=== PATIENT | female | born 1965 | race Caucasian/White ===

== ENCOUNTER 2016-12-15 07:17 | Emergency (ER) | payer OTHER ==
[~2016-12-15] VITALS: Ht 162.6 cm; Wt 131.5 kg
[~2016-12-15 07:17] MED LIST: ACHD5005 PO; CIPR500T4 PO; DICL50TA4 PO; HYDR-229 PO; HYDR-34 PO; HYDR-3816 PO; HYDR118S10 PO; IBP600T1 PO; OMEP-10 PO; [UNRECOGNIZED DRUG - OTHER]
--- OUTSIDE RECORDS SUMMARY | 2016-12-15 07:23 | XMS REPORT | Continuity of Care Document ---
Author Author [facility] Organization [facility] Address Unknown Phone Unavailable Allergies Active Description Code Type Severity Reaction Onset Reported/Identified Relationship to Patient Clinical Status Yes Penicillins [id number] Drug Allergy Unknown N/A 08/28/2015 Medications Problems Date Dx Coded Attending Type Code Diagnosis Diagnosed By 10/22/2009 Ot 530.19 10/22/2009 Ot 530.3 04/04/2012 Ot 218.9 04/04/2012 Ot 599.0 04/04/2012 Ot 620.2 04/04/2012 Ot 789.03 01/01/2013 Ot 620.2 03/01/2013 STEVEN MARCH DO Ot 218.0 03/01/2013 STEVEN MARCH DO Ot 278.01 03/01/2013 STEVEN MARCH DO Ot 620.2 03/01/2013 STEVEN MARCH DO Ot V85.43 09/14/2014 RUDOLPH MENDOSA Ot V76.12 08/28/2015 MIKAL GUZMAN, DAVID Gotti Ot D25.9 08/28/2015 MIKAL GUZMAN, DAVID Gotti Ot K57.90 08/28/2015 MIKAL GUZMAN, DAVID Gotti Ot N39.0 08/28/2015 MIKAL GUZMAN, DAVID Gotti Ot N83.20 08/28/2015 Ot V76.12 08/28/2015 Ot 218.9 08/28/2015 Ot 620.2 08/28/2015 Ot 625.9 08/28/2015 Ot 620.2 08/28/2015 STEVEN MARCH DO Ot 620.2 08/28/2015 STEVEN MARCH DO Ot V72.63 08/28/2015 STEVEN MARCH DO Ot V72.81 08/28/2015 STEVEN MARCH DO Ot V74.8 08/28/2015 MARIN GARCIA DO Ot 218.9 08/28/2015 MARIN GARCIA DO Ot 620.2 08/28/2015 RUDOLPH MENDOSA Ot V76.12 09/14/2015 Ot V76.12 09/14/2015 Ot 218.9 09/14/2015 Ot 620.2 09/14/2015 Ot 625.9 09/14/2015 Ot 620.2 09/14/2015 ANCA ROACH STEVEN Mac Ot 620.2 09/14/2015 ANCA ROACH STEVEN Mac Ot V72.63 09/14/2015 MARCH STEVEN Ot V72.81 09/14/2015 MARCH STEVEN Ot V74.8 09/14/2015 SULYMYRTLE MARIN Ot 218.9 09/14/2015 MARIN GARCIA DO Ot 620.2 09/14/2015 RUDOLPH MENDOSA Ot V76.12 Procedures Results Encounters ACCT No. Visit Date/Time Discharge Status Pt. Type Provider Facility Loc./Unit Complaint [id number] 08/28/2015 09:34:00 2014 14:46:00 DIS Emergency DAVID REN MD [facility] ER [id number] 10/02/2014 10:00:00 2013 23:59:59 CLS Preadmit RUDOLPH MENDOSA [facility] RAD [id number] 08/30/2014 11:39:00 2013 23:59:59 CLS Outpatient RUDOLPH MENDOSA [facility] RAD [id number] 07/10/2014 10:02:00 2013 23:59:59 CLS Outpatient MARIN GARCIA DO [facility] RAD [id number] 03/01/2013 10:27:00 2012 17:15:00 DIS Outpatient STEVEN MARCH DO [facility] [id number] 02/23/2013 08:59:00 2012 23:59:59 CLS Outpatient STEVEN MARCH DO [facility] PREOP [id number] 01/26/2013 11:46:00 Document Registration [id number] 12/31/2012 23:28:00 Document Registration [id number] 12/29/2012 10:20:00 Document Registration [id number] 04/26/2012 10:47:00 Document Registration [id number] 04/04/2012 13:33:00 Document Registration [id number] 10/22/2009 08:27:00 Document Registration
[2016-12-15] MEDS ORDERED: NS IV 1000 ML 1,000 ML IV ONE (07:33)
[2016-12-15] MEDS ORDERED: KETOROLAC 30 MG/ML VIAL IVP STA (07:33)
[2016-12-15] MEDS ORDERED: [UNRECOGNIZED DRUG - OTHER] PO (07:37)
[2016-12-15] MEDS ORDERED: CATAFLAM PO (07:37)
[2016-12-15 07:38] LABS: BILIRUBIN,URINE NEGATIVE (NEGATIVE); KETONES,URINE NEGATIVE (NEGATIVE); LEUKOCYTE ESTERASE ,URINE 3+ (NEGATIVE); NITRITE,URINE NEGATIVE (NEGATIVE); PH,URINE 7 (5-9); PROTEIN,URINE 3+ (NEGATIVE); UROBILINOGEN,URINE NORMAL (NORMAL)
--- NOTE | 2016-12-15 07:44 | ED GU-Female ---
General Chief Complaint: -Female Stated Complaint: UTI SYMPTOMS Nursing Triage Note: PT CO OF UTI SX STARTED AT 0400 THIS AM, PT STATES HAD LOTS OF PAIN IN LOWER ABD Nursing Sepsis Screen: No Definite Risk Source: patient History of Present Illness Time seen by provider: 07:20 Initial Comments PT STATES SHE WOKE UP AT 0400 WITH SIGNIFICANT LOWER ABDOMINAL PAIN AND BLADDER SPASMS--PAIN WOKE HER UP C/O MUCH PAIN IN BLADDER AT END OF URINATION NOW WITH BLOOD IN URINE AND LOWER BACK PAIN ( DID NOT HAVE INITIALLY ) NO FEVER NO NAUSEA NO HISTORY OF SIMILAR PCP: DR. NAVARRO Allergies and Home Medications Allergies Coded Allergies: Penicillins (Verified Allergy, Unknown, 08/28/15) Home Medications 1 TAB PO DAILY (Reported) 1 TAB PO DAILY (Reported) Hydrocodone/Acetaminophen 1 Each Tablet #20 1 EACH PO Q4H Prescribed by: JESIKA ANGELA on 12/15/16843 Levofloxacin 500 Mg Tablet #10 500 MG PO DAILY Prescribed by: JESIKA ANGELA on 12/15/16843 Phenazopyridine HCl 200 Mg Tablet #15 1 TAB PO TID Prescribed by: JESIKA ANGELA on 12/15/16843 Constitutional: no symptoms reported Respiratory: no symptoms reported Cardiovascular: no symptoms reported Gastrointestinal: see HPI abdominal painNo diarrhea, No nausea, No vomiting Genitourinary: see HPI dysuria flank pain hematuria pain : No LMP: Oct 26, 2016 (FIRST PERIOD SHE HAS HAD IN A YEAR--LAST PERIOD WAS OCTOBER 2015. MENOPAUSAL/MARY-MENOPAUSAL) Musculoskeletal: see HPI back pain Skin: no symptoms reported Psychiatric/Neurological: No Symptoms Reported Endocrine: No Symptoms Reported Hematologic/Lymphatic: No Symptoms Reported Past Wslmted-Bjsqig-Uzvsok Hx Patient Social History Alcohol Use: Denies Use Recreational Drug Use: No Smoking Status: Never a Smoker Recent Foreign Travel: No Contact w/Someone Who Travel: No Recent Infectious Disease Expo: No Recent Hopitalizations: No Immunizations Up To Date Tetanus Booster (TDap): Unknown Seasonal Allergies Seasonal Allergies: No Surgeries HX Surgeries: Yes (RIGHT OVARY/TUBE REMOVED FOR CYSTS) Surgeries: Adenoidectomy, Section, Ear Surgery, Gallbladder, Oophorectomy, Orthopedic, Tonsillectomy Respiratory Hx Respiratory Disorders: No Cardiovascular Hx Cardiac Disorders: No Neurological Hx Neurological Disorders: No Reproductive System Hx Reproductive Disorders: Yes (OVARIAN CYST/5 MISCARRIAGES) Sexually Transmitted Disease: No HIV/AIDS: No Female Reproductive Disorders: Ovarian Cyst, Polycystic Ovarian Dis 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 Genitourinary Hx Genitourinary Disorders: No Gastrointestinal Hx Gastrointestinal Disorders: Yes Gastrointestinal Disorders: Gastroesophageal Reflux, Hiatal Hernia Musculoskeletal Hx Musculoskeletal Disorders: Yes (HEEL SPURS) Endocrine Hx Endocrine Disorders: No HEENT HX ENT Disorders: No Cancer Hx Cancer: No Psychosocial Hx Psychiatric Problems: No Integumentary HX Skin/Integumentary Disorder: No Blood Transfusions Hx Blood Disorders: No Adverse Reaction to a Blood Tr: No Physical Exam Vital Signs Vital Sign - Last 12Hours 12/15/16 07:20 Temp 97.4 Pulse 110 Resp 18 B/P 172/100 Pulse Ox 99 Capillary Refill : Less Than 3 Seconds General Appearance: obese other (TEARFUL) Neck: normal inspection Cardiovascular: regular rate, rhythm no murmur Respiratory: normal breath sounds no respiratory distress no accessory muscle use Gastrointestinal: normal bowel sounds soft tenderness (LOWER ABDOMEN AND BILATERAL FLANK TENDERNESS) Back: CVA tenderness (R) CVA tenderness (L) other (DIFFUSE LOWER BACK TENDERNESS) Extremities: normal inspection no pedal edema no calf tenderness normal capillary refill Neurologic/Psychiatric: cam specialist II-XII nml as tested no motor/sensory deficits alert oriented x 3 Skin: normal color warm/dry Progress/Results/Core Measures Results/Orders Lab Results My Orders Medications Given in ED Vital Signs/I&O Blood Pressure Mean: 124 Progress Note : Progress Note PAIN IMPROVED AT DISMISSAL Diagnostic Imaging Comments ACUTE ABDOMEN XRAYS--NO ACUTE PROCESS CT ABDOMEN/PELVIS--NO ACUTE PROCESS, LEFT ADNEXAL CYST HAS DECREASED IN SIZE FROM PREVIOUS, DIVERTICULAR DISEASE. NO EVIDENCE OF HYDRONEPHROSIS OR CALCULI PER RADIOLOGIST REPORTS @ 0837 Reviewed: Reviewed by Me Departure Impression Impression: Primary Impression: Urinary tract infection Additional Impressions: Ovarian cyst, left Hemorrhagic cystitis Disposition: 01 HOME, SELF-CARE Condition: Stable Departure-Patient Inst. Referrals: VANESSA NAVARRO MD (PCP/Family) Primary Care Physician Patient Instructions: Blood in the Urine (Hematuria), Adult (DC), Ovarian Cyst (DC), Urinary Tract Infection, Adult (DC) Add. Discharge Instructions: LOTS OF CLEAR LIQUIDS--NO COFFEE, POP OR TEA FOLLOW UP WITH YOUR DR IN 2-3 DAYS FOR FURTHER CARE All discharge instructions reviewed with patient and/or family. Voiced understanding. Scripts Hydrocodone/Acetaminophen (Hydrocodon -Acetaminophen 5-325)1 Each Tablet1 Each PO Q4H #20 TAB Prov:JESIKA ANGELA DO 12/15/16 Phenazopyridine HCl (Pyridium)200 Mg Tablet1 Tab PO TID BLADDER DISCOMFORT #15 TAB Prov:JESIKA ANGELA DO 12/15/16 Levofloxacin (Levaquin)500 Mg [id number] Mg PO DAILY INFECTION #10 TAB Prov:JESIKA ANGELA DO 12/15/16 JESIKA ANGELA DO Dec 15, 2016 07:44 Anion Gap 10 5-14 MMOL/L Aspartate Amino Transf (AST/SGOT) 17 5-34 U/L BUN/Creatinine Ratio 16 Basophils # (Auto) 0.0 0.0-0.1 10^3/uL Basophils (%) (Auto) 0 0-10 % Blood Urea Nitrogen 11 7-18 MG/DL Calcium Level 8.9 8.5-10.1 MG/DL Carbon Dioxide Level 22 21-32 MMOL/L Chloride Level 105 98-107 MMOL/L Creatinine 0.69 0.60-1.30 MG/DL Eosinophils # (Auto) 0.2 0.0-0.3 10^3/uL Eosinophils (%) (Auto) 2 0-10 % Estimat Glomerular Filtration Rate > 60 Glucose Level 108 H 70-105 MG/DL Hematocrit 38 35-52 % Hemoglobin 12.6 11.5-16.0 G/DL Lipase 11 8-78 U/L Lymphocytes # (Auto) 1.7 1.0-4.0 X 10^3 Lymphocytes (%) (Auto) 14 12-44 % Mean Corpuscular Hemoglobin 32 25-34 PG Mean Corpuscular Hemoglobin Concent 34 32-36 G/DL Mean Corpuscular Volume 95 80-99 FL Mean Platelet Volume 9.6 7.4-10.4 FL Monocytes # (Auto) 1.4 H 0.0-1.0 X 10^3 Monocytes (%) (Auto) 12 0-12 % Neutrophils # (Auto) 8.5 H 1.8-7.8 X 10^3 Neutrophils (%) (Auto) 72 42-75 % Platelet Count 321 130-400 10^3/uL Potassium Level 3.8 3.6-5.0 MMOL/L Red Blood Count 3.94 L 4.35-5.85 10^6/uL Red Cell Distribution Width 12.9 10.0-14.5 % Sodium Level 137 135-145 MMOL/L Total Bilirubin 0.4 0.1-1.0 MG/DL Total Protein 7.3 6.4-8.2 G/DL White Blood Count 11.7 H 4.3-11.0 10^3/uL My Orders Orders-JESIKA ANGELA DO Ua Culture If Indicated (12/15/16 07:28) Ct Abd/Pelvis Wo(Kidney Stone) (12/15/16 07:33) Amylase (12/15/16 07:33) Cbc With Automated Diff (12/15/16 07:33) Comprehensive Metabolic Panel (12/15/16 07:33) Lipase (12/15/16 07:33) Acute Abd Series (12/15/16 07:33) Saline Lock/Iv-Start (12/15/16 07:33) Ketorolac Injection (Toradol Injection) (12/15/16 07:33) Saline Lock/Iv-Start (12/15/16 07:33) Ns Iv 1000 Ml (Sodium Chloride 0.9%) (12/15/16 07:33) Urine Culture (12/15/16 07:30) Medications Given in ED Current Medications Medications Dose Ordered Sig/Kylie Route Start Time Stop Time Status Last Admin Dose Admin Sodium Chloride 1,000 ml @ 0 mls/hr Q0M ONCE IV 12/15/16 07:33 12/15/16 07:35 DC 12/15/16 07:43 1,000 MLS/HR Vital Signs/I&O Vital Sign - Last 12Hours 12/15/16 07:20 Temp 97.4 Pulse 110 Resp 18 B/P 172/100 Pulse Ox 99 Blood Pressure Mean: 124 Diagnostic Imaging Comments ACUTE ABDOMEN XRAYS--NO ACUTE PROCESS CT ABDOMEN/PELVIS--NO ACUTE PROCESS, LEFT ADNEXAL CYST HAS DECREASED IN SIZE FROM PREVIOUS, DIVERTICULAR DISEASE. NO EVIDENCE OF HYDRONEPHROSIS OR CALCULI PER RADIOLOGIST REPORTS @ 0837 Reviewed: Reviewed by Me Departure Impression Impression: Primary Impression: Urinary tract infection Additional Impressions: Ovarian cyst, left Hemorrhagic cystitis Disposition: 01 HOME, SELF-CARE Condition: Stable Departure-Patient Inst. Referrals: MELANIE,VANESSA A MD (PCP/Family) Primary Care Physician Patient Instructions: Blood in the Urine (Hematuria), Adult (DC), Ovarian Cyst (DC), Urinary Tract Infection, Adult (DC) Add. Discharge Instructions: LOTS OF CLEAR LIQUIDS--NO COFFEE, POP OR TEA FOLLOW UP WITH YOUR DR IN 2-3 DAYS FOR FURTHER CARE All discharge instructions reviewed with patient and/or family. Voiced understanding. Scripts Hydrocodone/Acetaminophen (Hydrocodon -Acetaminophen 5-325)1 Each Tablet1 Each PO Q4H #20 TAB Prov:JESIKA ANGELA DO 12/15/16 Phenazopyridine HCl (Pyridium)200 Mg Tablet1 Tab PO TID BLADDER DISCOMFORT #15 TAB Prov:JESIKA ANGELA DO 12/15/16 Levofloxacin (Levaquin)500 Mg Jesinv181 Mg PO DAILY INFECTION #10 TAB Prov:JESIKA ANGELA DO 12/15/16 JESIKA ANGELA DO Dec 15, 2016 07:44
[2016-12-15 07:49] LABS: SQUAMOUS EPITHELIAL CELL,UR RARE /HPF; WBC,URINE 25-50 /HPF
[2016-12-15 08:04] LABS: BASOPHILS % (AUTO) 0 % (0-10); EOSINOPHILS # (AUTO) 0.2 10^3/uL (0.0-0.3); EOSINOPHILS % (AUTO) 2 % (0-10); LYMPHOCYTES # (AUTO) 1.7 X 10^3 (1.0-4.0); LYMPHOCYTES % (AUTO) 14 % (12-44); MEAN CORPUSCULAR HEMOGLOBIN 32 PG (25-34); MEAN CORPUSCULAR HGB CONC 34 G/DL (32-36); MEAN CORPUSCULAR VOLUME 95 FL (80-99); MEAN PLATELET VOLUME 9.6 FL (7.4-10.4); MONOCYTES # (AUTO) 1.4 X 10^3 (0.0-1.0); MONOCYTES % (AUTO) 12 % (0-12); NEUTROPHILS # (AUTO) 8.5 X 10^3 (1.8-7.8); NEUTROPHILS % (AUTO) 72 % (42-75); PLATELET COUNT 321 10^3/uL (130-400); RED BLOOD COUNT 3.94 10^6/uL (4.35-5.85); RED CELL DISTRIBUTION WIDTH 12.9 % (10.0-14.5); WHITE BLOOD COUNT 11.7 10^3/uL (4.3-11.0)
--- NOTE | 2016-12-15 08:22 | Diagnostic Imaging Report ---
INDICATION: Abdominal pain. Abdominal series performed in the routine fashion with a frontal chest radiograph and supine upright abdominal films. FINDINGS: Frontal chest view shows heart normal in size with normal mediastinal silhouette. The lungs are clear. There is no pneumothorax or pleural fluid. There is no free intraperitoneal air. There are surgical clips in the right upper quadrant. There is moderate stool throughout the colon. IMPRESSION: No sign of free air or bowel obstruction. No acute pulmonary infiltrate. Dictated by: Dictated on workstation # [id number]
[2016-12-15 08:25] LABS: ALANINE AMINOTRANSFERASE 19 U/L (0-55); ALBUMIN 3.9 G/DL (3.2-4.5); AMYLASE 38 U/L (25-125); ANION GAP 10 MMOL/L (5-14); ASPARTATE AMINO TRANSFERASE 17 U/L (5-34); BILIRUBIN,TOTAL 0.4 MG/DL (0.1-1.0); BLOOD UREA NITROGEN 11 MG/DL (7-18); BUN/CREATININE RATIO 16; CALCIUM 8.9 MG/DL (8.5-10.1); CARBON DIOXIDE 22 MMOL/L (21-32); CHLORIDE 105 MMOL/L (98-107); CREATININE SERUM 0.69 MG/DL (0.60-1.30); GFR ESTIMATED > 60; GLUCOSE 108 MG/DL (70-105); LIPASE 11 U/L (8-78); POTASSIUM 3.8 MMOL/L (3.6-5.0); SODIUM 137 MMOL/L (135-145); TOTAL PROTEIN 7.3 G/DL (6.4-8.2)
--- NOTE | 2016-12-15 08:34 | Diagnostic Imaging Report ---
PROCEDURE: CT urinary tract, rule out kidney stone. TECHNIQUE: Multiple contiguous axial images were obtained through the abdomen and pelvis without the use of intravenous contrast. INDICATION: Urinary tract infection, bladder pain. Exam compared to 08/28/2015. FINDINGS: Left adnexal cyst is decreased in size today 3.7 cm, previously 5.4 cm maximal. There is no hydronephrosis and there are no opaque urinary tract calculi. There is no perinephric edema. The unopacified urinary bladder had an unremarkable appearance. Pelvic phleboliths chronic. There is noninflamed diverticuli at the sigmoid. There is no appendicitis. No ascites, abscess, hematoma or other fluid collection. The gallbladder absent. IMPRESSION: Left adnexal cyst is decreased in size from a prior. There is noninflamed diverticulosis. There is no hydronephrosis or opaque urinary tract calculus disease. Dictated by: Dictated on workstation # [id number]
[2016-12-15] MEDS ORDERED: HYDR-3812 PO (08:44)
[2016-12-15] MEDS ORDERED: morphine INJ 10 MG/ML 1ML (SYR OR VIAL) IVP STA (08:44)
[2016-12-15] MEDS ORDERED: PHEN-640 PO (08:44)
[2016-12-15] MEDS ORDERED: LEVO500T2 PO (08:44)
[2016-12-15] MEDS ORDERED: cefTRIAXone INJECTION 1,000 MG in NS (IVPB) 50 ML IV ONE (08:45)
[2016-12-15 09:16] VITALS: BP 139/80
== END 2016-12-15 09:18 | disposition home or self-care (01) ==
LOC: EDUNIT# 07:17 → ER 07:19
DX: N30.91 Cystitis, unspecified with hematuria (principal); N83.202 Unspecified ovarian cyst, left side; K57.30 Diverticulosis of large intestine without perforation or abscess without bleeding
CPT/HCPCS: 36415; 74022; 74176; 80053; 81000; 82150; 83690; 85025; 87088; 87186; 96361; 96365; 96375

== ENCOUNTER → 2020-06-15 | Outpatient (CLI) | payer BC, OTHER ==
[~2020-06-15] MED LIST changes: +CATAFLAM PO; -HYDR-3816 PO; +LEVO500T2 PO; +PHEN-640 PO; +[UNRECOGNIZED DRUG - OTHER] PO
--- NOTE | 2020-06-15 14:58 | Diagnostic Imaging Report ---
INDICATION: Routine screening. Comparison is made with prior mammogram 08/30/2014 and 04/26/2012. 2-D and 3-D bilateral screening mammography was performed with CAD. Scattered fibroglandular densities are identified bilaterally. The parenchymal pattern is stable. No mass or malignant appearing microcalcifications are identified. Axillae are unremarkable. IMPRESSION: BI-RADS Category 1 No mammographic features suspicious for malignancy are identified. ACR BI-RADS Category 1: Negative. Result letter will be mailed to the patient. Note: At least 10% of breast cancer is not imaged by mammography. Dictated by: Dictated on workstation # [id number]
== END ==
LOC: RAD 13:59
PROVIDERS: ATTEND Surgery
DX: Z12.31 Encounter for screening mammogram for malignant neoplasm of breast (principal)
CPT/HCPCS: 77063; 77067

== ENCOUNTER 2020-06-27 05:28 | Outpatient (RCR) | payer OTHER ==
[~2020-06-27] VITALS: Ht 162.6 cm; Wt 162.7 kg
[~2020-06-27 05:28] MED LIST changes: +DICL75TA2 PO; +LISI40TA PO; +MULT-593 PO; +OMEP20TA7 PO; +PHEN37.53 PO; +PRAV10TA PO
== END 2020-06-27 14:31 | disposition home or self-care (01) ==
LOC: PREOP 05:28
PROVIDERS: ATTEND Surgery
DX: Z01.812 Encounter for preprocedural laboratory examination (principal); Z20.828 Contact with and (suspected) exposure to other viral communicable diseases
CPT/HCPCS: 87635

== ENCOUNTER 2020-06-29 11:28 | Day surgery (SDC) | payer OTHER ==
[~2020-06-29] VITALS: Ht 162.6 cm; Wt 162.7 kg
[2020-06-29] MEDS ORDERED: LACTATED RINGERS 1,000 ML IV STA (11:37)
[2020-06-29] MEDS ORDERED: HURRICAINE EXT TUBE (BENZOCAINE) XX PRN (11:45)
[2020-06-29] MEDS ORDERED: LIDOCAINE JELLY 2% 6 ML SYRINGE MM PRN (11:45)
[2020-06-29] MEDS ORDERED: LACTATED RINGERS 1,000 ML IV ONE (11:45)
[2020-06-29 11:51] VITALS: BP 128/62
[2020-06-29] MEDS ORDERED: proPOfol 200 MG/20 ML (DIPRIVAN) VIAL IV ONE (12:26)
[2020-06-29] MEDS ORDERED: MIDAZOLAM 2 MG/2 ML (VERSED) VIAL ONE (12:26)
[2020-06-29] MEDS ORDERED: LIDOCAINE JELLY 2% 6 ML SYRINGE ONE (12:27)
[2020-06-29] MEDS ORDERED: HURRICAINE EXT TUBE (BENZOCAINE) ONE (12:27)
[2020-06-29 12:50] VITALS: BP 148/63
[2020-06-29 12:55] VITALS: BP 128/60
[2020-06-29 13:00] VITALS: BP 128/60
--- NOTE | 2020-06-29 13:04 | Progress Note-Pre Operative ---
Pre-Operative Progress Note H&P Reviewed The H&P was reviewed, patient examined and no changes noted. Date Seen by Provider: Jun 29, 2020 Time Seen by Provider: 12:00 Date H&P Reviewed: Jun 29, 2020 Time H&P Reviewed: 12:00 Pre-Operative Diagnosis: NAVEEN OZUNA MD Jun 29, 2020 13:04
[2020-06-29] MEDS ORDERED: PANT40TA2 PO (13:06)
--- NOTE | 2020-06-29 13:06 | Discharge Inst-Surgical ---
D/C Lap Instructions-KIDMarla New, Converted, or Re-Newed RX: RX on Chart Follow Up Appt in 2 weeks Activity as tolerated High Fiber Diet 25g or more per day Avoid Alcohol, Caffeine, Spicy [place] and Acid foods. Drink 64 fluid oz or more of fluids per day. Symptoms to Report: Fever over 101 degree F, Nausea/Vomiting If any problems/questions: Contact your physician or go to Emergency Room NAVEEN DAVID MD Jun 29, 2020 13:06
[2020-06-29] MEDS ORDERED: ACETAMINOPHEN 325 MG TABLET PO PRN (13:15)
[2020-06-29] MEDS ORDERED: morphine INJ 10 MG/ML 1ML (SYR OR VIAL) IVP PRN ×2 (13:15)
[2020-06-29] MEDS ORDERED: ONDANSETRON 4 MG/2 ML (SDV) Z0FRAN IVP PRN (13:15)
[2020-06-29] MEDS ORDERED: HYDROcodone/APAP 5 MG/325 MG (LORTAB) TAB PO PRN (13:15)
[2020-06-29 13:25] VITALS: BP 128/60
--- NOTE | 2020-06-29 13:32 | Anesthesia-General Post-Op ---
MAC Patient Condition Mental Status/LOC: Same as Preop Cardiovascular: Satisfactory Nausea/Vomiting: Absent Respiratory: Satisfactory Pain: Controlled Complications: Absent Post Op Complications Complications None Follow Up Care/Instructions Patient Instructions None needed. Anesthesiology Discharge Order Discharge Order Patient is doing well, no complaints, stable vital signs, no apparent adverse anesthesia problems. No complications reported per nursing. MESHA MCKEON CRNA Jun 29, 2020 13:32
--- NOTE | 2020-06-29 21:15 | OPERATIVE REPORT ---
DATE OF SERVICE: 06/29/2020 ATTENDING PRIMARY CARE PHYSICIAN: Anita Wooten MD PREOPERATIVE DIAGNOSIS: Gastroesophageal reflux disease. POSTOPERATIVE DIAGNOSES: Reflux esophagitis between stage II and III with a mild distal esophageal stricture, small hiatal hernia approximately 2 cm in size, moderate gastritis. PROCEDURE: EGD with biopsy and balloon dilatation. SURGEON: Naveen David MD. ANESTHESIA: Monitored anesthesia care. ESTIMATED BLOOD LOSS: Minimal. FINDINGS: Reflux esophagitis between stage II and III with a mild distal esophageal stricture, small hiatal hernia approximately 2 cm in size, moderate gastritis. DISPOSITION: The patient tolerated the procedure well. INDICATIONS: The patient is a 55-year-old female who has had significant issue with gastroesophageal reflux disease. She states that she has had this for many years and has tried number of different medications with no success. She has also had issues with weight gain and obesity and is in our surgical weight loss program for the laparoscopic gastric sleeve resection. DESCRIPTION OF PROCEDURE: The patient was brought to the endoscopy suite, laid in left lateral decubitus position. After adequate IV pain and sedative medications and monitored anesthesia care, the mouthpiece was applied. The endoscope was then placed in the mouth, visualizing the pharynx and hypopharyngeal region. Vocal cords, epiglottis and vallecula identified and appeared to be normal. The endoscope was gently intubated at the esophageal opening and esophagus insufflated. The endoscope was then advanced to the first, second and third portion of esophagus at the level of GE junction, a reflux esophagitis between stage II and III identified as well as a mild distal esophageal stricture. A biopsy was taken with forceps with visualization of good hemostasis. The endoscope was then advanced into the stomach and endoscope retroflexed, visualizing what appears to be a type 1 sliding hiatal hernia, which was small and approximately 2 cm in size. There was a moderate gastritis with some superficial erosions of the antrum. Biopsy was taken of the antrum to rule out H. pylori with visualization of good hemostasis. The endoscope was then advanced to the pylorus and the first and second portion of duodenum, which appeared normal with no distal obstructions. We then proceeded with balloon dilatation of distal esophageal stricture. The balloon was placed in the stomach and pulled back to the area of stricture. We first proceeded 2 atmospheres of pressure with no resistance. We then proceeded with 4 and then to 6 atmospheres of pressure with moderate resistance or 20 mm in luminal diameter or 60-Swiss and left this in place for approximately 60 seconds. The balloon was then desufflated and removed with visualization of good hemostasis as well as no mucosal tears. The endoscope was then slowly withdrawn while taking a second look and suctioning of residual air with no additional findings. The patient tolerated the procedure well. We will have her proceed with the necessary lifestyle and diet accommodation including small and more frequent meals, avoiding eating at night as well as head elevation while lying supine. We also will encourage her to continue with medically supervised weight loss before proceeding with the laparoscopic gastric sleeve resection. Job ID: [id number] DocumentID: [id number] Dictated Date: 06/29/2020 12:54:38 [employer] Representatives Date: 06/29/2020 21:15:06 Dictated By: NAVEEN DAVID MD
== END 2020-06-29 13:30 | disposition home or self-care (01) ==
LOC: ENDO 11:28
PROVIDERS: ATTEND Surgery
DX: K21.0 Gastro-esophageal reflux disease with esophagitis (principal); K22.2 Esophageal obstruction; K44.9 Diaphragmatic hernia without obstruction or gangrene; K29.70 Gastritis, unspecified, without bleeding; E66.01 Morbid (severe) obesity due to excess calories; M17.0 Bilateral primary osteoarthritis of knee; I10 Essential (primary) hypertension; E78.00 Pure hypercholesterolemia, unspecified; Z79.899 Other long term (current) drug therapy; Z88.0 Allergy status to penicillin; Z68.44 Body mass index [BMI] 60.0-69.9, adult
CPT/HCPCS: 88305

== ENCOUNTER 2022-08-20 16:57 | Emergency (ER) | payer OTHER ==
[~2022-08-20] VITALS: Ht 162.5 cm; Wt 114.0 kg
[~2022-08-20 16:57] MED LIST changes: -CIPR500T4 PO; +CIPR500T5 PO; -LISI40TA PO; +LISI40TA9 PO; +OMEP20TA56 PO; -OMEP20TA7 PO; +PANT40TA2 PO; -PHEN37.53 PO; +PHEN37.58 PO
[2022-08-20] MEDS ORDERED: ONDANSETRON 4 MG/2 ML (SDV) Z0FRAN ONE (17:24)
[2022-08-20] MEDS ORDERED: KETOROLAC 30 MG/ML VIAL ONE (17:25)
[2022-08-20 17:29] LABS: BILIRUBIN,URINE NEGATIVE (NEGATIVE); CLARITY,URINE CLEAR; COLOR,URINE YELLOW; GLUCOSE, URINE (UA) NEGATIVE (NEGATIVE); KETONES,URINE NEGATIVE (NEGATIVE); LEUKOCYTE ESTERASE ,URINE TRACE (NEGATIVE); NITRITE,URINE NEGATIVE (NEGATIVE); PROTEIN,URINE TRACE (NEGATIVE)
[2022-08-20] MEDS ORDERED: KETOROLAC 30 MG/ML VIAL IVP ONE (17:30)
[2022-08-20] MEDS ORDERED: ONDANSETRON 4 MG/2 ML (SDV) Z0FRAN IVP ONE (17:30)
[2022-08-20 17:42] LABS: BACTERIA,URINE FEW /HPF; HYALINE CASTS, URINE RARE /LPF
--- NOTE | 2022-08-20 17:58 | ED Abdominal Pain ---
General Chief Complaint: Abdominal/GI Problems Stated Complaint: ABDOMINAL PAIN Nursing Triage Note: PT AMB TO TRIAGE WITH COMPLAINT OF LOWER ABD PAIN THAT STARTED AROUND 230 THIS AFTERNOON. Source of Information: Patient Exam Limitations: No Limitations History of Present Illness Date Seen by Provider: Aug 20, 2022 Time Seen by Provider: 19:50 Allergies and Home Medications Allergies Coded Allergies: Penicillins (Verified Allergy, Unknown, 08/28/15) Patient Home Medication List Ciprofloxacin HCl (Ciprofloxacin HCl) 500 Mg Tablet, 500 MG PO BID Prescribed by: JOVANY CAREY on 08/20/221954 Diclofenac Sodium (Diclofenac Sodium) 75 Mg Tablet.dr, 75 MG PO BID, (Reported) Entered as Reported by: NICOLE OVERTON on 06/22/20 133 Hydrocodone/Acetaminophen (Hydrocodone-Acetamin 5-325 mg) 5 Mg-325 Mg Tablet, 1 TAB PO Q6H PRN for PAIN-MODERATE (5-7) Prescribed by: JOVANY CAREY on 08/20/221954 Lisinopril (Lisinopril) 40 Mg Tablet, 40 MG PO DAILY, (Reported) Entered as Reported by: NICOLE OVERTON on 06/22/20 133 Metronidazole (Metronidazole) 500 Mg Tablet, 500 MG PO BID Prescribed by: JOVANY CAREY on 08/20/221954 Multivitamin with Minerals (Multiple Vitamin) 1 Each Tablet, 1 EACH PO DAILY, (Reported) Entered as Reported by: NICOLE OVERTON on 06/22/20 1334 Pantoprazole Sodium (Protonix) 40 Mg Tablet., 40 MG PO DAILY Prescribed by: NAVEEN DAVID on 06/29/20 1306 Phentermine HCl (Phentermine HCl) 37.5 Mg Tablet, 37.5 MG PO DAILY, (Reported) Entered as Reported by: NICOLE OVERTON on 06/22/20 1334 Pravastatin Sodium (Pravastatin Sodium) 10 Mg Tablet, 10 MG PO HS, (Reported) Entered as Reported by: NICOLE OVERTON on 06/22/20 1334 Past Oghuulf-Jkjrsj-Peudwx Hx Patient Social History Tobacco Use?: No Use of E-Cig and/or Vaping dev: No Substance use?: No Alcohol Use?: No Pt feels they are or have been: No Immunizations Up To Date Tetanus Booster (TDap): Unknown Seasonal Allergies Seasonal Allergies: No Past Medical History Surgeries: Yes (RIGHT OVARY/TUBE REMOVED FOR CYSTS) Adenoidectomy, Section, Ear Surgery, Gallbladder, Oophorectomy, Orthopedic, Tonsillectomy Respiratory: No Cardiac: Yes Hypertension Neurological: No Reproductive Disorders: Yes (OVARIAN CYST/5 MISCARRIAGES) Female Reproductive Disorders: Ovarian Cyst, Polycystic Ovarian Dis 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 oz. 131.614151if; 43.00 BMI Method:Stated Progress/Results/Core Measures Results/Orders Lab Results Laboratory Tests Test 08/20/22 17:17 08/20/22 17:20 Range/Units Urine Color YELLOW Urine Clarity CLEAR Urine pH 6.0 5-9 Urine Specific [place] >=1.030 1.016-1.022 Urine Protein TRACE H NEGATIVE Urine Glucose (UA) NEGATIVE NEGATIVE Urine Ketones NEGATIVE NEGATIVE Urine Nitrite NEGATIVE NEGATIVE Urine Bilirubin NEGATIVE NEGATIVE Urine Urobilinogen 0.2 < = 1.0 MG/DL Urine Leukocyte Esterase TRACE H NEGATIVE Urine RBC (Auto) NEGATIVE NEGATIVE Urine RBC 5-10 H /HPF Urine WBC 10-25 H /HPF Urine Squamous Epithelial Cells 5-10 /HPF Urine Crystals NONE /LPF Urine Bacteria FEW H /HPF Urine Casts PRESENT /LPF Urine Hyaline Casts RARE /LPF Urine Mucus MODERATE H /LPF Urine Culture Indicated YES White Blood Count 11.7 H 4.3-11.0 10^3/uL Red Blood Count 4.51 3.80-5.11 10^6/uL Hemoglobin 14.1 11.5-16.0 g/dL Hematocrit 43 35-52 % Mean Corpuscular Volume 95 80-99 fL Mean Corpuscular Hemoglobin 31 25-34 pg Mean Corpuscular Hemoglobin Concent 33 32-36 g/dL Red Cell Distribution Width 12.5 10.0-14.5 % Platelet Count 370 130-400 10^3/uL Mean Platelet Volume 10.6 9.0-12.2 fL Immature Granulocyte % (Auto) 0 % Neutrophils (%) (Auto) 66 42-75 % Lymphocytes (%) (Auto) 22 12-44 % Monocytes (%) (Auto) 10 0-12 % Eosinophils (%) (Auto) 2 0-10 % Basophils (%) (Auto) 0 0-10 % Neutrophils # (Auto) 7.7 1.8-7.8 10^3/uL Lymphocytes # (Auto) 2.5 1.0-4.0 10^3/uL Monocytes # (Auto) 1.2 H 0.0-1.0 10^3/uL Eosinophils # (Auto) 0.2 0.0-0.3 10^3/uL Basophils # (Auto) 0.0 0.0-0.1 10^3/uL Immature Granulocyte # (Auto) 0.0 0.0-0.1 10^3/uL Sodium Level 138 135-145 MMOL/L Potassium Level 3.8 3.6-5.0 MMOL/L Chloride Level 104 98-107 MMOL/L Carbon Dioxide Level 22 21-32 MMOL/L Anion Gap 12 5-14 MMOL/L Blood Urea Nitrogen 18 7-18 MG/DL Creatinine 0.86 0.60-1.30 MG/DL Estimat Glomerular Filtration Rate 78 BUN/Creatinine Ratio 21 Glucose Level 123 H 70-105 MG/DL Calcium Level 9.8 8.5-10.1 MG/DL Corrected Calcium 9.4 8.5-10.1 MG/DL Total Bilirubin 0.4 0.1-1.0 MG/DL Aspartate Amino Transf (AST/SGOT) 24 5-34 U/L Alanine Aminotransferase (ALT/SGPT) 18 0-55 U/L Alkaline Phosphatase 109 40-136 U/L C-Reactive Protein High Sensitivity 0.89 H 0.00-0.50 MG/DL Total Protein 8.9 H 6.4-8.2 GM/DL Albumin 4.5 3.2-4.5 GM/DL My Orders Orders - JOVANY CAREY APRN Ua Culture If Indicated (08/20/22 17:01) Ondansetron Injection (Zofran Injectio (08/20/22 17:30) Ketorolac Injection (Toradol Injection) (08/20/22 17:30) Urine Culture (08/20/22 17:17) Cbc With Automated Diff (08/20/22 17:57) Comprehensive Metabolic Panel (08/20/22 17:57) Hs C Reactive Protein (08/20/22 17:57) Ct Abdomen/Pelvis W (08/20/22 17:57) Iohexol Injection (Omnipaque 350 Mg/Ml 1 (08/20/22 18:15) Received Contrast (Hold Metformin- Contr (08/20/22 18:15) Ns (Ivpb) (Sodium Chloride 0.9% Ivpb Bag (08/20/22 18:15) Fentanyl Inj (Sublimaze Injection) (08/20/22 19:15) Ciprofloxacin Tablet (Cipro Tablet) (08/20/22 19:15) Rx-Hydrocodone/Apap 5-325 Mg (Rx-Vicodin (08/20/22 20:00) Medications Given in ED Current Medications Medications Dose Ordered Sig/Kylie Route Start Time Stop Time Status Last Admin Dose Admin Ciprofloxacin 500 mg ONCE ONCE PO 08/20/22 19:15 08/20/22 19:16 DC 08/20/22 19:27 500 MG Fentanyl Citrate 50 mcg ONCE ONCE IVP 08/20/22 19:15 08/20/22 19:16 DC 08/20/22 19:22 50 MCG Iohexol 100 ml ONCE ONCE IV 08/20/22 18:15 08/20/22 18:16 DC 08/20/22 18:12 100 ML Ketorolac Tromethamine 30 mg ONCE ONCE IVP 08/20/22 17:30 08/20/22 17:31 DC 08/20/22 17:32 30 MG Ondansetron HCl 4 mg ONCE ONCE IVP 08/20/22 17:30 08/20/22 17:31 DC 08/20/22 17:32 4 MG Sodium Chloride 100 ml ONCE ONCE IV 08/20/22 18:15 08/20/22 18:16 DC 08/20/22 18:12 80 ML Vital Signs/I&O 08/20/22 17:02 Temp 36.2 Pulse 110 Resp 20 B/P (MAP) 199/119 (145) Pulse Ox 95 O2 Delivery Room Air Blood Pressure Mean: 145 Departure Impression Primary Impression: Acute diverticulitis Disposition: 01 HOME, SELF-CARE Condition: Improved Departure-Patient Inst. Decision time for Depature: 19:50 Referrals: VANESSA NAVARRO MD (PCP/Family) Primary Care Physician LUIS FERNANDO PARKER DO Patient Instructions: Diverticulitis Add. Discharge Instructions: Plan: 1. Follow-up with Dr. Parker next week. His office phone number and address is in the discharge packet. 2. Take antibiotics as directed to complete full course even if you begin to feel better. Make sure you continue your probiotic as well. 3. Take hydrocodone as needed every 4 hours for pain. This can cause constipation, I recommend taking MiraLAX twice a day to keep your stools soft. If you develop diarrhea you can decrease to once a day. 4. For the next 2 days you need to clear liquid diet, this includes broth, coffee with no creamer, Jell-O, popsicles. After 2 days you can slowly increase her diet to full liquids such as applesauce, milks. Avoid nuts, corn, popcorn, seeds. 5. Return to the ER if you develop increasing pain, fever, nausea, vomiting this could be a sign of bowel perforation. If you have any new or other concerning symptoms please return to the ER. All discharge instructions reviewed with patient and/or family. Voiced understanding. Scripts Hydrocodone/Acetaminophen (Hydrocodone-Acetamin 5-325 mg) 5 Mg-325 Mg Tablet 1 TAB PO Q6H PRN for PAIN-MODERATE (5-7), #14 TAB 0 Refills Prov: JOVANY CAREY SAFETY AND HEALTH MANAGER 08/20/22 Metronidazole (Metronidazole) 500 Mg Tablet 500 MG PO BID for 7 Days, #14 TAB 0 Refills Prov: JOVANY CAREY SAFETY AND HEALTH MANAGER 08/20/22 Ciprofloxacin HCl (Ciprofloxacin HCl) 500 Mg Tablet 500 MG PO BID for 7 Days, #14 TAB 0 Refills Prov: JOVANY CAREY SAFETY AND HEALTH MANAGER 08/20/22 JOVANY CAREY SAFETY AND HEALTH MANAGER Aug 20, 2022 17:58
[2022-08-20 18:04] LABS: BASOPHILS % (AUTO) 0 % (0-10); EOSINOPHILS # (AUTO) 0.2 10^3/uL (0.0-0.3); EOSINOPHILS % (AUTO) 2 % (0-10); HEMATOCRIT 43 % (35-52); HEMOGLOBIN 14.1 g/dL (11.5-16.0); LYMPHOCYTES # (AUTO) 2.5 10^3/uL (1.0-4.0); LYMPHOCYTES % (AUTO) 22 % (12-44); MEAN CORPUSCULAR HEMOGLOBIN 31 pg (25-34); MEAN CORPUSCULAR HGB CONC 33 g/dL (32-36); MEAN CORPUSCULAR VOLUME 95 fL (80-99); MEAN PLATELET VOLUME 10.6 fL (9.0-12.2); MONOCYTES # (AUTO) 1.2 10^3/uL (0.0-1.0); MONOCYTES % (AUTO) 10 % (0-12); NEUTROPHILS # (AUTO) 7.7 10^3/uL (1.8-7.8); NEUTROPHILS % (AUTO) 66 % (42-75); PLATELET COUNT 370 10^3/uL (130-400); WHITE BLOOD COUNT 11.7 10^3/uL (4.3-11.0)
[2022-08-20 18:07] LABS: ALBUMIN 4.5 GM/DL (3.2-4.5); POTASSIUM 3.8 MMOL/L (3.6-5.0)
[2022-08-20 18:08] LABS: CALCIUM 9.8 MG/DL (8.5-10.1)
[2022-08-20 18:09] LABS: TOTAL PROTEIN 8.9 GM/DL (6.4-8.2)
[2022-08-20 18:11] LABS: BILIRUBIN,TOTAL 0.4 MG/DL (0.1-1.0)
[2022-08-20 18:13] LABS: CREATININE SERUM 0.86 MG/DL (0.60-1.30)
[2022-08-20] MEDS ORDERED: NS 100 ML (IVPB) BAG IV ONE (18:15)
[2022-08-20] MEDS ORDERED: IOHEXOL 350 MG/ML 100 ML (OMNIPAQUE 350) VIAL IV ONE (18:15)
[2022-08-20] MEDS ORDERED: HOLD METFORMIN - RECEIVED CONTRAST 20 ML VIAL IV SCH (18:15)
--- NOTE | 2022-08-20 18:31 | Diagnostic Imaging Report ---
PROCEDURE: CT abdomen and pelvis with contrast. TECHNIQUE: Multiple contiguous axial images were obtained through the abdomen and pelvis after administration of intravenous contrast. Auto Exposure Controls were utilized during the CT exam to meet ALARA standards for radiation dose reduction. All CT scans use one or more of the following dose optimizing techniques: automated exposure control, MA and/or KvP adjustment based on patient size and exam type or iterative reconstruction. INDICATION: Abdominal pain. History of gastric sleeve procedure. COMPARISON: 08/28/2015. FINDINGS: Lung bases are clear without pneumonia or edema. There is no pleural or pericardial effusion. The liver demonstrates no evidence of a focal intrahepatic abnormality. Patient is status post cholecystectomy. There is no abnormal biliary dilatation. The hepatic and portal veins are patent. Pancreas is unremarkable. The spleen is normal in size. The left adrenal gland is normal. There is a macroscopic fat-density tumor which appears to arise from the right adrenal gland that likely reflects an angiomyolipoma. The kidneys are nonobstructed. There are small bilateral renal cysts. There is no perinephric fat stranding or evidence of a radiodense stone. There are operative changes of a gastric sleeve procedure. There is no abnormal gastric thickening demonstrated or evidence of regional inflammation. There are no findings of bowel obstruction. Note is made of diverticulosis. There is some very subtle stranding demonstrated along the sigmoid colon which could reflect a very mild diverticulitis. There is no free fluid. There is no abscess. Bladder, uterus, and adnexa are unremarkable. IMPRESSION: 1. Advanced diverticulosis with subtle fat stranding along the sigmoid colon that may reflect a mild noncomplicated diverticulitis. There is no resultant obstruction. There is no free air, abscess or free fluid within the pelvis. 2. Fat-density nodule arising from the right adrenal gland is most compatible with a benign angiomyolipoma. 3. Prior cholecystectomy and gastric sleeve procedure. Dictated by: Dictated on workstation # [id number]
[2022-08-20] MEDS ORDERED: fentaNYL INJ 100 MCG/2 ML AMP IVP ONE (19:15)
[2022-08-20] MEDS ORDERED: CIPROFLOXACIN 500 MG (CIPRO) TABLET PO ONE (19:15)
[2022-08-20] MEDS ORDERED: ACHD5005 PO (19:55)
[2022-08-20] MEDS ORDERED: METR-145 PO (19:55)
[2022-08-20] MEDS ORDERED: CIPR500T5 PO (19:55)
[2022-08-20 20:14] VITALS: BP 129/75
== END 2022-08-20 20:14 | disposition home or self-care (01) ==
LOC: EDUNIT# 16:57 → ER 16:59
DX: K57.92 Diverticulitis of intestine, part unspecified, without perforation or abscess without bleeding (principal); Z90.49 Acquired absence of other specified parts of digestive tract
CPT/HCPCS: 36415; 74177; 80053; 81000; 85025; 86141; 87088